=== PATIENT | male | born 1935 ===

== ENCOUNTER 2017-09-25 13:08 | Emergency (ER) | payer MEDICARE ==
[2017-09-25 13:29] VITALS: RESP 18
[2017-09-25 14:21] LABS: URINE BILIRUBIN NEGATIVE (NEGATIVE); URINE BLOOD 3+ (NEGATIVE); URINE CLARITY Clear (Clear); URINE COLOR Yellow (YELLOW); URINE GLUCOSE (UA) 1+ mg/dL (Normal); URINE LEUKOCYTE ESTERASE NEG Leu/uL (Negative); URINE PROTEIN 1+ mg/dL (NEGATIVE); URINE UROBILINOGEN NORMAL mg/dL (0.2-1.0)
[2017-09-25 14:46] VITALS: BP 147/71; PULSE 76; TEMP 98.4; O2SAT 99
--- NOTE | 2017-09-25 14:49 | C.PDOC ---
History Of Present Illness Pt states that he has ambulatory surgery on his left hand this morning and that he was unable to urinate after that. Time Seen by Provider: 09/25/17 13:32 Chief Complaint (Nursing): Male Genitourinary History Per: Patient, Family Onset/Duration Of Symptoms: Hrs (since this morning) Current Symptoms Are (Timing): Still Present Severity: Severe Associated Symptoms: Urinary Symptoms Alleviating Factors: None Additional History Per: Prior Records Past Medical History Reviewed: Historical Data, Nursing Documentation, Vital Signs Vital Signs: Last Vital Signs Temp 98.4 F 09/25/17 14:45 Pulse 76 09/25/17 14:45 Resp 18 09/25/17 14:45 BP 147/71 09/25/17 14:45 Pulse Ox 99 09/25/17 14:51 - Medical History PMH: No Chronic Diseases Family History: States: Unknown Family Hx - Social History Hx Alcohol Use: No Hx Substance Use: No - Immunization History Hx Tetanus Toxoid Vaccination: No Hx Influenza Vaccination: No Hx Pneumococcal Vaccination: No Review Of Systems Except As Marked, All Systems Reviewed And Found Negative. Constitutional: Negative for: Fever, Weakness Cardiovascular: Negative for: Chest Pain Respiratory: Negative for: Shortness of Breath Gastrointestinal: Positive for: Abdominal Pain (suprapubic). Negative for: Vomiting Genitourinary: Negative for: Scrotal Pain Musculoskeletal: Negative for: Neck Pain Skin: Negative for: Rash Neurological: Negative for: Weakness, Numbness Physical Exam - Physical Exam Appears: Non-toxic, No Acute Distress Skin: Normal Color, Warm, Dry, No Rash Head: Atraumatic, Normacephalic Eye(s): bilateral: PERRL, EOMI Neck: Normal ROM, Supple Cardiovascular: Rhythm Regular Respiratory: Normal Breath Sounds, No Accessory Muscle Use Gastrointestinal/Abdominal: Distention (of the urinary bladder) Back: No CVA Tenderness Male Genital: No Testicular Tenderness, No Testicular Swelling, No Scrotal Swelling, Other (Hypospadias. (pt states he already knows about it)) Extremity: Normal ROM Neurological/Psych: Oriented x3, Normal Motor, Normal Sensation ED Course And Treatment O2 Sat by Pulse Oximetry: 99 Pulse Ox Interpretation: Normal Progress Note: Velasco catheter was inserted by RN with relief of symptoms. Reassessment Condition: Improved Medical Decision Making Medical Decision Making: Urinary retention is likely due to the anesthesia during surgery. Will leave velasco catheter in and instruct pt to return tomorrow for removal. Disposition Counseled Patient/Family Regarding: Studies Performed, Diagnosis, Need For Followup - Disposition Referrals: Yecenia Connolly MD [Staff Provider] - Disposition: HOME/ ROUTINE Disposition Time: 14:52 Condition: IMPROVED Additional Instructions: Drink plenty of fluids. Return to the ER tomorrow for removal of the Velasco catheter. Return to the ER immediately if you develop fever, pain, urine not coming out, worsening of symptoms or if you have any other concerns. Instructions: Urinary Retention (DC) Print Language: SETSWANA - Clinical Impression Clinical Impression: Acute urinary retention
== END 2017-09-25 15:05 | disposition home or self-care (01) ==
LOC: C.ER 13:08
DX: R33.9 Retention of urine, unspecified (principal)

== ENCOUNTER 2017-09-26 14:07 | Emergency (ER) | payer MEDICARE ==
[2017-09-26 14:13] VITALS: BMI 24.2
[2017-09-26 14:15] VITALS: RESP 18
--- NOTE | 2017-09-26 14:43 | C.PDOC ---
History Of Present Illness 82 year old male patient presents to the ER requesting removal of Fitzpatrick catheter. Patient reports he had hand surgery yesterday and afterwards he was unable to urinate. He came to the ED for evaluation and a Fitzpatrick catheter was placed. Patient states he feels much better and was instructed to come to ER for removal. Patient denies back pain, fever, and dysuria. Time Seen by Provider: 09/26/17 14:16 Chief Complaint (Nursing): Male Genitourinary History Per: Patient History/Exam Limitations: no limitations Past Medical History Reviewed: Historical Data, Nursing Documentation, Vital Signs Vital Signs: Last Vital Signs Temp 98.8 F 09/26/17 15:18 Pulse 82 09/26/17 15:18 Resp 18 09/26/17 15:18 BP 152/86 H 09/26/17 15:18 Pulse Ox 96 09/26/17 16:53 Family History: States: Unknown Family Hx - Social History Hx Alcohol Use: No Hx Substance Use: No - Immunization History Hx Tetanus Toxoid Vaccination: No Hx Influenza Vaccination: No Hx Pneumococcal Vaccination: No Review Of Systems Except As Marked, All Systems Reviewed And Found Negative. Constitutional: Negative for: Fever Genitourinary: Negative for: Dysuria Musculoskeletal: Negative for: Back Pain Physical Exam - Physical Exam Appears: Well, Non-toxic, No Acute Distress Skin: Normal Color, Warm, Dry Head: Atraumatic, Normacephalic Eye(s): bilateral: Normal Inspection, EOMI Nose: Normal Oral Mucosa: Moist Neck: Normal ROM, Supple Chest: Symmetrical Respiratory: No Accessory Muscle Use, Other (speaking in full sentences) Gastrointestinal/Abdominal: Normal Exam, Soft, No Tenderness Neurological/Psych: Oriented x3, Normal Speech, No Other (focal deficits) ED Course And Treatment O2 Sat by Pulse Oximetry: 96 (RA) Pulse Ox Interpretation: Normal Progress Note: Plans: Fitzpatrick catheter was removed by RN. Reassess: patient was able to urinate normally. He requested discharge and was advised to f/u with a urologist. Disposition - Disposition Referrals: Shivam Foss MD [Staff Provider] - Disposition: HOME/ ROUTINE Disposition Time: 14:41 Condition: STABLE Additional Instructions: Follow up with your primary doctor in1-2 days. Return to ER if symptoms persist or worsen. Instructions: Urinary Retention (DC) Forms: [employer] (Belarusian) Print Language: ICELANDIC - Clinical Impression Clinical Impression: Acute urinary retention - PA / COMM[employer] ATTORNEY / Resident Statement / has reviewed & agrees with the documentation as recorded. - Scribe Statement The provider has reviewed the documentation as recorded by the Monique Avina Do All medical record entries made by the Scribe were at my direction and personally dictated by me. I have reviewed the chart and agree that the record accurately reflects my personal performance of the history, physical exam, medical decision making, and the department course for this patient. I have also personally directed, reviewed, and agree with the discharge instructions and disposition.
[2017-09-26 15:19] VITALS: BP 152/86; PULSE 82; TEMP 98.8
[2017-09-26 16:50] VITALS: O2SAT 96
== END 2017-09-26 15:18 | disposition home or self-care (01) ==
LOC: C.ER 14:07
DX: R33.9 Retention of urine, unspecified (principal)

== ENCOUNTER 2017-09-28 04:11 | Emergency (ER) | payer MEDICARE ==
[2017-09-28 04:12] VITALS: BMI 24.2
--- NOTE | 2017-09-28 04:18 | C.PDOC ---
History Of Present Illness 82 y/o male presents to the ED with complaints of acute urinary retention tonight. On arrival patient appears in severe distress. Last void was around 7PM. Patient offers no other physical complaints. Time Seen by Provider: 09/28/17 04:18 Chief Complaint (Nursing): Male Genitourinary History Per: Patient History/Exam Limitations: no limitations Onset/Duration Of Symptoms: Hrs Current Symptoms Are (Timing): Still Present Severity: Severe Pain Scale Rating Of: 8 Associated Symptoms: Other (Retention) Alleviating Factors: None Past Medical History Reviewed: Historical Data, Nursing Documentation, Vital Signs Vital Signs: Last Vital Signs Temp 98.3 F 09/28/17 04:19 Pulse 90 09/28/17 04:19 Resp 18 09/28/17 04:19 BP 224/73 H 09/28/17 04:19 Pulse Ox 98 09/28/17 04:34 Other Surgeries: Left hand surgery Family History: States: Unknown Family Hx - Social History Hx Tobacco Use: No Hx Alcohol Use: No Hx Substance Use: No - Immunization History Hx Tetanus Toxoid Vaccination: No Hx Influenza Vaccination: No Hx Pneumococcal Vaccination: No Review Of Systems Constitutional: Negative for: Fever, Chills Gastrointestinal: Negative for: Nausea, Vomiting Genitourinary: Positive for: Other (Urinary retention). Negative for: Dysuria, Hematuria, Rash Physical Exam - Physical Exam Appears: Non-toxic, No Acute Distress Skin: Warm, Dry Head: Normacephalic Eye(s): bilateral: Normal Inspection Oral Mucosa: Moist Neck: Trachea Midline, Supple Chest: Symmetrical Cardiovascular: Rhythm Regular Respiratory: No Rales, No Rhonchi, No Wheezing Gastrointestinal/Abdominal: Soft, Tenderness (suprapubic), No Guarding, Other ( globus vesicalis) Male Genital: Other (Penis with no lesions, hx of hypospadias) Extremity: Bilateral: Atraumatic, Normal Color And Temperature, Normal ROM Pulses: Left Dorsalis Pedis: Normal, Right Dorsalis Pedis: Normal Neurological/Psych: Oriented x3 ED Course And Treatment O2 Sat by Pulse Oximetry: 98 (RA) Pulse Ox Interpretation: Normal Progress Note: Plcaed 18 [place] Fitzpatrick catheter without any difficulty. Pt tolerated the procedure well. ABout 900 cc of urine drained Reevaluation Time: 04:44 Reassessment Condition: Improved Disposition Counseled Patient/Family Regarding: Studies Performed, Diagnosis, Need For Followup - Disposition Referrals: Shivam Foss MD [Staff Provider] - Disposition: HOME/ ROUTINE Disposition Time: 04:18 Condition: FAIR Instructions: How to Care for Your Fitzpatrick Catheter, Male, Urinary Retention (DC) Forms: [employer] (Irish) - Clinical Impression Clinical Impression: Acute urinary retention - Scribe Statement The provider has reviewed the documentation as recorded by the Scribe (Bambi Diaz) Provider Attestation: All medical record entries made by the Scribe were at my direction and personally dictated by me. I have reviewed the chart and agree that the record accurately reflects my personal performance of the history, physical exam, medical decision making, and the department course for this patient. I have also personally directed, reviewed, and agree with the discharge instructions and disposition.
[2017-09-28 04:21] VITALS: PULSE 90; TEMP 98.3
[2017-09-28 05:10] VITALS: BP 150/78; RESP 20; O2SAT 99
== END 2017-09-28 05:09 | disposition home or self-care (01) ==
LOC: C.ER 04:11
DX: R33.9 Retention of urine, unspecified (principal)